=== PATIENT | male | born 1965 | race Caucasian/White ===

== ENCOUNTER 2021-12-29 09:01 | Emergency (ER) | payer OTHER, MEDICAID, SELFPAY ==
[2021-12-29 09:16] VITALS: BP 153/87; PULSE 100; RESP 14; TEMP 37.1; O2SAT 98; BMI 25.7
--- NOTE | 2021-12-29 09:28 | ED.GENADULT ---
HPI - General Adult General Chief complaint: Eye Problems Stated complaint: Eye swelling Time Seen by Provider: 12/29/21 09:24 Source: patient Mode of arrival: Ambulatory History of Present Illness HPI narrative: Patient is a 56-year-old male. He is here for swelling around his right eye. He states he has a boil in this area that he has had for many years. He states that it grows and then drains. He has had it lanced in the past. He also has a similar issue on his back. Over the past 24 hours he has noted swelling around his right eye with some redness. No drainage. No specific visual changes. No foreign body sensation. He attempted to drain the boil at home without any success. Does were glasses but no contact lenses. No prior eye surgeries. Related Data Previous Rx's Medication Instructions Recorded cephalexin 500 mg capsule 500 mg PO QID 5 Days #20 cap 12/29/21 Allergies Allergy/AdvReac Type Severity Reaction Status Date / Time No Known Drug Allergies Allergy Verified 12/29/21 09:16 Review of Systems Constitutional Constitutional: Reports as per HPI and Reports system reviewed and no additional complaints, except as documented Eyes Eyes: Reports as per HPI and Reports system reviewed and no additional complaints, except as documented ENT Ears, Nose, Mouth, and Throat: Reports system reviewed and no additional complaints, except as documented and Reports as per HPI Integumentary/Breasts Skin/Breast: Reports as per HPI Hematologic/Lymphatic On Anticoagulants: No Patient History Medical History Boil Social History Smoking Status: Current every day smoker Smoking Status: Current every day smoker alcohol intake frequency: 3 or more drinks per day Substance Use Type: does not use Exam Initial Vital Signs Initial Vital Signs: Vital Signs Temperature 98.7 F 12/29/21 09:16 Pulse Rate 100 H 12/29/21 09:16 Respiratory Rate 14 12/29/21 09:16 Blood Pressure 153/87 H 12/29/21 09:16 Pulse Oximetry 98 12/29/21 09:16 Const General: cooperative, comfortable and well developed [facility] Head: normal to inspection Nose: external nose normal Mouth: oral mucosae normal Eyes Other: Patient does have redness and swelling both superior and inferior around the right eye. On the lateral aspect of the right eye there is a swelling consistent with his stated history of a boil. There is minimal erythema in this area. His pupils are equal and reactive. Extraocular muscles intact. No foreign body noted. Sclera is unremarkable Resp Effort & Inspection: normal respiratory effort Cardio Rate: regular rate Skin Other: Patient does have a 2 cm round fullness on his right upper back where he states he has had a boil in the past. He has a similar appearing area just lateral to his right eye. Neuro General: patient alert, patient awake and moves all extremities Procedures Abscess I/D I&D #1: Site: back Side (if applicable): right Local Anesthetic: lidocaine 1% and with bicarb Amount of anesthesia used (mL): 2 Technique: incised with #11 blade Irrigation: No Packing used?: none I&D #2: Site: face Side (if applicable): right Local Anesthetic: lidocaine 1% and with bicarb Amount of anesthesia used (mL): 2 Technique: needle aspiration Irrigation: No Packing used?: none Course Orders Ordered: Discontinued Medications Lidocaine/Sodium Bicarbonate (Lido 1%/Sod Bicarb 8.4% (10ml) 10 Ml Syringe) 10 ml INJ NOW ONE Stop: 12/29/21 09:30 Vital Signs Vital signs: Vital Signs - 8 hr 12/29/21 09:16 Temperature 98.7 F Pulse Rate 100 H Respiratory Rate 14 Blood Pressure 153/87 H Pulse Oximetry 98 Medical Decision Making [facility] Narrative Medical decision making narrative: After incision and drainage of the 2 areas noted above it did appear that these were epidermal inclusion cyst not necessarily abscesses. He does have redness and swelling surrounding his right eye with no other eye complaints. I have low suspicion for orbital cellulitis. Given the fact that this is around his I will start him on antibiotics. He was informed that he needed to follow-up with general surgery to have the cyst removed. He was given care instructions and return precautions. He expressed understanding and agreement. Discharge Plan Departure Patient Disposition: Home Clinical Impression: Epidermal inclusion cyst, Periorbital cellulitis Instructions: DI for Epidermal Cyst Activity Restrictions/Additional Instructions: I do recommend that you contact the surgeon at the number provided below to have the cysts that were drained today removed. There most likely going to continue to reoccur until this happens. Take the antibiotics as directed. Return to the emergency department for any new or worsening symptoms. Prescriptions: New cephalexin 500 mg capsule 500 mg PO QID 5 Days Qty: 20 0RF Referrals: Bruce Starr MD [Physician] -
[2021-12-29] MEDS: LIDO 1%/SOD BICARB 8.4% (10ML) 10 ML SYRINGE INJ (10:02)
== END 2021-12-29 10:07 | disposition home or self-care (01) ==
PROVIDERS: Emergency Provider Emergency Medicine
DX: L72.0 Epidermal cyst (principal); L03.213 Periorbital cellulitis; F17.200 Nicotine dependence, unspecified, uncomplicated
CPT/HCPCS: 10061; 99281; 99283

== ENCOUNTER 2023-04-04 08:54 | Emergency (ER) | payer OTHER, MEDICAID, SELFPAY ==
[2023-04-04] VITALS (15 sets, daily range): BP systolic 135–179; BP diastolic 76–111; PULSE 70–114; RESP 12–30; TEMP 36.5; O2SAT 94–100; BMI 25.0
--- NOTE | 2023-04-04 09:00 | DI.RAD.S_ITS ---
PROCEDURE: XR CHEST 1V INDICATIONS: chest pain TECHNIQUE: One view of the chest was acquired. COMPARISON: None. FINDINGS: Surgical changes and devices: None. Lungs and pleura: Lungs are clear. No pleural effusions or pneumothorax. Mediastinum: Mediastinal contours appear normal. Heart size is normal. Bones and chest wall: No suspicious bony lesions. Overlying soft tissues appear unremarkable. IMPRESSION: No acute cardiopulmonary process. Dictated by: Patrick Bowman M.D. on 04/04/2023 at 9:28 Approved by: Patrick Bowman M.D. on 04/04/2023 at 9:28
[2023-04-04] MEDS: ASPIRIN 81 MG CHEW TAB 324 MG PO (09:06)
[2023-04-04 09:16] LABS: Add Manual Diff / Slide Review NO; Basophils Absolute Auto 100 /uL (0-100); Eosinophils Absolute Auto 200 /uL (0-450); Eosinophils Percent Auto 2.7 % (2-4); Hematocrit 51.3 % (41-53); Hemoglobin 17.5 g/dL (13.5-17.5); INR 0.9 (0.9-1.3); Lymphocytes Absolute Auto 1700 /uL (1100-4500); Mean Corpuscular HGB Conc 34.2 % (30-36); Mean Corpuscular Hemoglobin 28.9 PG (26-34); Mean Corpuscular Volume 84.6 fL (80-100); Monocytes Absolute Auto 600 /uL (0-900); Monocytes Percent Auto 8.3 % (3-14); Neutrophils Absolute Auto 4500 /uL (1500-7000); Platelet Count 278 X10^3/uL (150-400); Prothrombin Time 10.5 SECONDS (10.1-12.7); Red Blood Cell Count 6.07 X10^6/uL (4.5-5.9); Red Cell Distribution Width 19.7 % (11.6-14.8)
[2023-04-04 09:18] LABS: PTT Partial Thromboplastin Tim 33 SECONDS (26-36)
[2023-04-04 09:21] LABS: Alanine Aminotransferase 29 IU/L (<50); Albumin 4.6 g/dL (3.5-5.0); Albumin Globulin Ratio 1.1 (1.0-2.8); Alkaline Phosphatase 147 U/L (38-126); Aspartate Aminotransferase 30 IU/L (17-59); BUN Creatinine Ratio 13.4 (6-22); Blood Urea Nitrogen 11 mg/dL (9-20); Calcium 9.6 mg/dL (8.4-10.2); Carbon Dioxide 27 mmol/L (22-32); Chloride 99 mmol/L (98-107); Creatine Kinase 60 U/L (55-170); Estimated Glomerular Filt Rate > 60 mL/min (>60); Globulin 4.3 g/dL (1.7-4.1); Glucose 143 mg/dL (70-100); HEMOLYSIS < 15 (0-50); Lipase 140 U/L (23-300); Magnesium 1.9 mg/dL (1.6-2.3); Potassium 3.8 mmol/L (3.4-5.1); Sodium 138 mmol/L (137-145); Total Protein 8.9 g/dL (6.3-8.2)
--- NOTE | 2023-04-04 09:25 | ED_ITS ---
HPI - Chest Pain General Chief Complaint: Chest Pain Stated Complaint: chest pain Time Seen by Provider: 04/04/23 09:23 Source: patient Mode of arrival: Ambulatory Limitations: no limitations History of Present Illness HPI narrative: Patient is a 58-year-old male. Does have a smoking history. Also has a history of high blood pressure. Also has a history of coronary artery disease. He states he had a heart attack approximately 15 years ago. He states that 1 hour ago he was walking and started to get chest discomfort. He states there periods of time when in his worse than others but is not completely gone. It is somewhat worse with palpation. Not worse with movement. No shortness of breath. He states that it does feel similar to his prior heart attack. He has had symptoms like this off and on for the past here so. At 1 point he was hospitalized for this. Has not tried anything for the symptoms prior to arrival. Related Data Allergies Allergy/AdvReac Type Severity Reaction Status Date / Time No Known Drug Allergies Allergy Verified 12/29/21 09:16 Review of Systems Review of Systems ROS Unobtainable: All systems reviewed & are unremarkable except as noted in HPI and below Patient History Medical History Boil Social History Smoking Status: Current every day smoker Smoking Status: Current every day smoker alcohol intake frequency: 3 or more drinks per day Substance Use Type: does not use Exam Initial Vital Signs Initial Vital Signs: Vital Signs Temperature 97.7 F 04/04/23 09:01 Pulse Rate 114 H 04/04/23 09:01 Respiratory Rate 22 04/04/23 09:01 Blood Pressure 179/111 H 04/04/23 09:01 Pulse Oximetry 99 04/04/23 09:01 Oxygen Delivery Method Room Air 04/04/23 09:01 Const General: cooperative, comfortable and No ill appearing [facility] Head: normal to inspection and normocephalic Resp Effort & Inspection: normal respiratory effort Auscultation: clear to auscultation bilaterally Cardio Rate: regular rate Rhythm: regular rhythm GI Palpation: soft and No tender Skin General: no rashes or lesions noted Neuro General: patient alert, patient awake, patient oriented x3 and moves all extrem ities Extrem General: normal to inspection and No edema Psych Appearance: grossly normal Scores HEART Score Heart Score history: Moderately Suspicious Heart Score EKG: Normal Heart Score Age: 45-64 years old Heart Score risk factors: > 3 risk factors or hx of atherosclerotic disease Heart Score troponin: < or = to normal limit Heart Score Total: 4 Course Orders Ordered: ED Orders 04/04/23 09:00 XR chest 1V Stat Complete Blood Count AUTO DIFF Stat Comprehensive Metabolic Panel Stat Lipase Stat Magnesium Stat PTT Partial Thromboplastin [place] Stat Prothrombin Time INR Stat Troponin & CK Cardiac Panel Stat EKG-12 Lead Stat 04/04/23 12:00 Troponin & CK Cardiac Panel Stat Nitroglycerin (Nitroglycerin 0.4 Mg Sl Tab) 0.4 mg SL [id number] PRN PRN Reason: Chest Pain Last Admin: 04/04/23 10:24 Dose: 0.4 mg Documented By: Admin: 04/04/23 10:20 Dose: 0.4 mg Documented By: REMI Discontinued Medications Aspirin (Aspirin 81 Mg Chew Tab) 324 mg PO NOW ONE Stop: 04/04/23 09:01 Last Admin: 04/04/23 09:06 Dose: 324 mg Documented By: VALERIE Vital Signs Vital signs: Vital Signs - 8 hr 04/04/23 09:01 04/04/23 09:09 04/04/23 09:10 Temperature 97.7 F Pulse Rate 114 H 92 H 92 H Respiratory Rate 22 30 H 27 H Blood Pressure 179/111 H Pulse Oximetry 99 100 99 Oxygen Delivery Method Room Air 04/04/23 09:10 04/04/23 09:15 04/04/23 10:20 Temperature Pulse Rate 85 82 Respiratory Rate 20 Blood Pressure 164/99 H 150/92 H Pulse Oximetry 98 Oxygen Delivery Method 04/04/23 10:24 04/04/23 09:30 04/04/23 09:30 Temperature Pulse Rate 96 H 76 Respiratory Rate 28 H Blood Pressure 150/92 H 160/99 H Pulse Oximetry 95 Oxygen Delivery Method 04/04/23 09:45 04/04/23 10:00 04/04/23 10:00 Temperature Pulse Rate 76 70 Respiratory Rate 27 H 27 H Blood Pressure 165/95 H Pulse Oximetry 96 96 Oxygen Delivery Method 04/04/23 10:15 04/04/23 10:23 04/04/23 10:23 Temperature Pulse Rate 70 83 Respiratory Rate 25 H 28 H Blood Pressure 150/92 H Pulse Oximetry 96 95 Oxygen Delivery Method 04/04/23 10:30 04/04/23 10:30 04/04/23 10:45 Temperature Pulse Rate 99 H 80 Respiratory Rate 12 21 Blood Pressure 155/82 H Pulse Oximetry 94 96 Oxygen Delivery Method 04/04/23 11:00 04/04/23 11:00 04/04/23 11:10 Temperature Pulse Rate 74 79 Respiratory Rate 17 14 Blood Pressure 135/76 Pulse Oximetry 96 98 Oxygen Delivery Method 04/04/23 11:10 Temperature Pulse Rate Respiratory Rate Blood Pressure 137/84 Pulse Oximetry Oxygen Delivery Method MDM - Chest Pain Lab Data Attestation: I reviewed the patient's lab results. 04/04/23 09:00 04/04/23 09:00 Labs: Lab Results 04/04/23 04/04/23 04/04/23 Range/Units 09:00 09:00 09:00 WBC 7.0 (4.5-11.0) X10^3/uL RBC 6.07 H (4.5-5.9) X10^6/uL Hgb 17.5 (13.5-17.5) g/dL Hct 51.3 (41-53) % MCV 84.6 (80-100) fL MCH 28.9 (26-34) PG MCHC 34.2 (30-36) % RDW 19.7 H (11.6-14.8) % Plt Count 278 (150-400) X10^3/uL Neut % (Auto) 64.0 (50-75) % Lymph % (Auto) 24.0 L (25-40) % [place] % (Auto) 8.3 (3-14) % Eos % (Auto) 2.7 (2-4) % Baso % (Auto) 1.0 (0-2) % Neut # (Auto) 4500 (9968-3468) /uL Lymph # (Auto) 1700 (9205-4307) /uL [place] # (Auto) 600 (0-900) /uL Eos # (Auto) 200 (0-450) /uL Baso # (Auto) 100 (0-100) /uL PT 10.5 (10.1-12.7) SECONDS INR 0.9 (0.9-1.3) APTT 33 (26-36) SECONDS Sodium 138 (137-145) mmol/L Potassium 3.8 (3.4-5.1) mmol/L Chloride 99 (98-107) mmol/L Carbon Dioxide 27 (22-32) mmol/L BUN 11 (9-20) mg/dL Creatinine 0.82 (0.66-1.25) mg/dL Estimated GFR > 60 (>60) mL/min BUN/Creatinine Ratio 13.4 (6-22) Glucose 143 H (70-100) mg/dL Calcium 9.6 (8.4-10.2) mg/dL Magnesium 1.9 (1.6-2.3) mg/dL Total Bilirubin 1.0 (0.2-1.3) mg/dL AST 30 (17-59) IU/L ALT 29 (<50) IU/L Alkaline Phosphatase 147 H (38-126) U/L Total Creatine Kinase 60 (55-170) U/L Troponin I 0.020 (0.01-0.034) ng/mL Total Protein 8.9 H (6.3-8.2) g/dL Albumin 4.6 (3.5-5.0) g/dL Globulin 4.3 H (1.7-4.1) g/dL Albumin/Globulin Ratio 1.1 (1.0-2.8) Lipase 140 (23-300) U/L Imaging Data Chest x-ray: Radiologist's Impression: PROCEDURE:? XR CHEST 1V ? INDICATIONS:? chest pain ? TECHNIQUE:? One view of the chest was acquired.? ? COMPARISON:? None. ? FINDINGS:? ? Surgical changes and devices:? None.? ? Lungs and pleura:? Lungs are clear.? No pleural effusions or pneumothorax.? ? Mediastinum:? Mediastinal contours appear normal.? Heart size is normal.? ? Bones and chest wall:? No suspicious bony lesions.? Overlying soft tissues appear unremarkable.? ? IMPRESSION:? No acute cardiopulmonary process. ECG Data Attestation: I personally reviewed and interpreted this ECG as follows: Interpretation: Sinus rhythm Ventricular rate 92 Normal axis Normal QRS Normal QTC No ST T wave changes MDM Narrative Medical decision making narrative: Patient does have a history of coronary artery disease. He arrived today with chest pain that he states is very similar to his prior heart attack but it is reproducible with palpation. He does have a heart score of 4. His EKG shows no changes. His troponin is negative. His symptoms resolved after nitroglycerin. Had a discussion with him regarding the symptoms. We discussed my concern about ACS as the cause of his symptoms specifically given his history. He expressed understanding of this. We discussed staying in the emergency department for repeat troponin however the patient stated that he needed to leave because he needed to move his trailer from the camping spot. He is alert oriented x3. GCS of 15. Not clinically intoxicated. In my opinion has capacity to make decisions. The patient's was at bedside for these discussions. We discussed the risks and benefits of going home. He understands my concern. He understands the risk to his life for this. He does have a primary doctor. Patient did leave Against Medical Advice. He was advised that he can return to the emergency department at any point to continue his workup. He was given nitroglycerin with instructions on how to take this medicine. He expressed understanding and agreement this plan. Discharge Plan Departure Patient Disposition: Left Against Medical Advice Clinical Impression: Chest pain Activity Restrictions/Additional Instructions: Despite my recommendation that you stay for further workup you have opted to be discharged from the hospital. I do recommend that you continue to take all of your medications as directed. I also recommend that you contact your primary doctor for follow-up. You can return to the emergency department at any point to complete your workup and I highly encourage you to return to the emergency department if your to have chest pain once again. Stand Alone Forms: Against Medical Advice
[2023-04-04] MEDS: NITROGLYCERIN 0.4 MG SL TAB SL ×2 (10:20→10:24)
--- NOTE | 2023-04-04 11:22 | PC.NURSE ---
Pt decided to leave AMA. Pt states the need to move his trailer that is parked in an [place] park by noon. Reports that if he is feeling pain he will come back. ambulated out of ED with steady gait
== END 2023-04-04 11:21 | disposition left against medical advice (07) ==
PROVIDERS: Emergency Provider Emergency Medicine
DX: R07.9 Chest pain, unspecified (principal); I25.2 Old myocardial infarction
CPT/HCPCS: 36415; 71045; 80053; 82550; 83690; 83735; 84484; 85025; 85610; 85730; 93005; 99284

== ENCOUNTER 2023-04-04 19:19 | Emergency (ER) | payer OTHER, MEDICAID, SELFPAY ==
[2023-04-04] VITALS (48 sets, daily range): BP systolic 122–159; BP diastolic 71–95; PULSE 69–98; RESP 10–31; TEMP 36.3; O2SAT 95–99
--- NOTE | 2023-04-04 19:27 | DI.RAD.S_ITS ---
PROCEDURE: XR CHEST 1V INDICATIONS: chest pain TECHNIQUE: One view of the chest was acquired. COMPARISON: [facility], CR, XR CHEST 1V, 04/04/2023, 9:03. FINDINGS: Surgical changes and devices: None. Lungs and pleura: Lungs are clear. No pleural effusions or pneumothorax. Mediastinum: Mediastinal contours appear normal. Heart size is normal. Bones and chest wall: No suspicious bony lesions. Overlying soft tissues appear unremarkable. IMPRESSION: 1. No acute cardiopulmonary disease. Dictated by: Reid Beasley M.D. on 04/04/2023 at 21:01 Approved by: Reid Beasley M.D. on 04/04/2023 at 21:02
[2023-04-04] MEDS: NITROGLYCERIN 0.4 MG SL TAB SL ×3 (19:35→19:47)
[2023-04-04] MEDS: KETOROLAC 30 MG/ML VIAL 15 MG IV (19:48)
[2023-04-04 19:50] LABS: Alanine Aminotransferase 25 IU/L (<50); Albumin 4.3 g/dL (3.5-5.0); Albumin Globulin Ratio 1.1 (1.0-2.8); Alkaline Phosphatase 130 U/L (38-126); Aspartate Aminotransferase 28 IU/L (17-59); BUN Creatinine Ratio 15.5 (6-22); Bilirubin Total 0.9 mg/dL (0.2-1.3); Blood Urea Nitrogen 13 mg/dL (9-20); Calcium 9.5 mg/dL (8.4-10.2); Carbon Dioxide 25 mmol/L (22-32); Chloride 103 mmol/L (98-107); Creatine Kinase 71 U/L (55-170); Estimated Glomerular Filt Rate > 60 mL/min (>60); Glucose 112 mg/dL (70-100); HEMOLYSIS < 15 (0-50); Lipase 93 U/L (23-300); Magnesium 1.7 mg/dL (1.6-2.3); Potassium 3.3 mmol/L (3.4-5.1); Sodium 137 mmol/L (137-145); Total Protein 8.3 g/dL (6.3-8.2)
[2023-04-04 19:55] LABS: Add Manual Diff / Slide Review NO; Basophils Absolute Auto 100 /uL (0-100); Basophils Percent Auto 1.5 % (0-2); Eosinophils Absolute Auto 200 /uL (0-450); Eosinophils Percent Auto 2.5 % (2-4); Hematocrit 48.6 % (41-53); Hemoglobin 16.6 g/dL (13.5-17.5); Lymphocytes Absolute Auto 1700 /uL (1100-4500); Lymphocytes Percent Auto 19.8 % (25-40); Mean Corpuscular HGB Conc 34.2 % (30-36); Mean Corpuscular Hemoglobin 28.5 PG (26-34); Mean Corpuscular Volume 83.4 fL (80-100); Monocytes Absolute Auto 700 /uL (0-900); Monocytes Percent Auto 8.3 % (3-14); Neutrophils Absolute Auto 5900 /uL (1500-7000); Neutrophils Percent Auto 67.9 % (50-75); Platelet Count 264 X10^3/uL (150-400); Red Blood Cell Count 5.82 X10^6/uL (4.5-5.9); Red Cell Distribution Width 19.7 % (11.6-14.8); White Blood Cell Count 8.7 X10^3/uL (4.5-11.0)
[2023-04-04 20:05] LABS: Troponin I 0.511 ng/mL (0.01-0.034)
--- NOTE | 2023-04-04 20:14 | ED_ITS ---
HPI - Chest Pain General Chief Complaint: Chest Pain Stated Complaint: chest pain/down left arm/back Time Seen by Provider: 04/04/23 20:04 Source: patient Mode of arrival: Ambulatory Limitations: no limitations History of Present Illness HPI narrative: Patient is a 58-year-old male history of coronary artery disease hypertension and smoking presenting for the 2nd time today. He is actually seen evaluated here for chest discomfort it was recommended that he have a repeat troponin however he needed to leave. He was given nitroglycerin he went home he was on the couch and he had pressure radiated down both arms and he took a nitroglycerin it did not seem to help much. He is now here presenting with same heaviness pressure radiation. No real shortness of breath but does not feel quite right. No nausea or vomiting Related Data Home Medications Medication Instructions Recorded Confirmed albuterol sulfate 90 mcg/actuation 2 inh inhalation Q4HR PRN Wheezing 04/04/23 04/04/23 aerosol inhaler amlodipine 5 mg tablet 5 mg PO DAILY 04/04/23 04/04/23 gabapentin 300 mg capsule 600 mg PO TID 04/04/23 04/04/23 hydrochlorothiazide 25 mg tablet 25 mg PO DAILY 04/04/23 04/04/23 ropinirole 0.5 mg tablet 0.5 mg PO TID 04/04/23 04/04/23 Allergies Allergy/AdvReac Type Severity Reaction Status Date / Time No Known Drug Allergies Allergy Verified 04/04/23 20:31 Review of Systems Review of Systems ROS Unobtainable: All systems reviewed & are unremarkable except as noted in HPI and below Patient History Medical History Alcohol dependence Boil Chronic back pain Hypertension Smoker Social History Smoking Status: Current every day smoker Smoking Status: Current every day smoker alcohol intake frequency: 3 or more drinks per day Substance Use Type: does not use Exam Initial Vital Signs Initial Vital Signs: Vital Signs Pulse Rate 95 H 04/04/23 19:25 Respiratory Rate 18 04/04/23 19:25 Blood Pressure 159/90 H 04/04/23 19:25 Pulse Oximetry 99 04/04/23 19:25 Oxygen Delivery Method Room Air 04/04/23 19:25 GENERAL: Alert 58-year-old male in mild discomfort HEENT: Head atraumatic,EOMI, pupils reactive, face symmetric, moist mucous membranes] CARDIOVASCULAR: Regular rate and rhythm without murmurs, rubs or gallops. RESPIRATORY: Breath sounds equal bilaterally, no wheezes rales or rhonchi. ABDOMEN: Soft, nontender. Normoactive bowel sounds all 4 quadrants. No guarding or rebound. : No CVA tenderness EXTREMITIES: Normal range of motion, no clubbing or edema. Neurovascularly intact NEUROLOGICAL: Alert and oriented x4. SKIN: Warm, dry, no laceration, no petechiae, no rashes or lesions. Course Orders Ordered: Discontinued Medications Heparin Sodium (Porcine) (Heparin 5,000 Unit/Ml Vial) 5,000 unit IV NOW ONE Stop: 04/04/23 20:20 Last Admin: 04/04/23 20:32 Dose: 5,000 unit Documented By: LAILA Heparin Sodium/Dextrose (Heparin Drip) 25,000 unit in 500 mls @ 19.715 mls/hr IV CONT SHELDON; Protocol Last Admin: 04/04/23 20:33 Dose: 12 units/kg/hr, 19.715 mls/hr Documented By: LAILA Co-signed By: RASHEED Nitroglycerin (Nitroglycerin) 50 mg in 250 mls @ 1.5 mls/hr IV TITRATE SHELDON; Protocol Last Admin: 04/04/23 20:31 Dose: 5 mcg/min, 1.5 mls/hr Documented By: LAILA Magnesium Sulfate (Magnesium Sulfate) 2 gm in 50 mls @ 150 mls/hr IV NOW ONE Stop: 04/05/23 01:08 Last Infusion: 04/05/23 02:29 Dose: 0 mls/hr Documented By: OMAYRA Co-signed By: DOUGLAS Admin: 04/05/23 01:41 Dose: 150 mls/hr Documented By: DOUGLAS Co-signed By: OMAYRA POTASSIUM CHLORIDE IN WATER (Potassium Cl 10 Meq/100 Ml Zoila) 10 meq in 100 mls @ 100 mls/hr IV Q1H SHELDON Stop: 04/05/23 02:59 Last Infusion: 04/05/23 05:37 Dose: 0 mls/hr Documented By: Admin: 04/05/23 03:27 Dose: 100 mls/hr Documented By: Infusion: 04/05/23 03:20 Dose: 100 mls/hr Documented By: Admin: 04/05/23 02:20 Dose: 100 mls/hr Documented By: DOUGLAS Ketorolac Tromethamine (Ketorolac 30 Mg/Ml Vial) 15 mg IV NOW ONE Stop: 04/04/23 19:45 Last Admin: 04/04/23 19:48 Dose: 15 mg Documented By: ZAK Nitroglycerin (Nitroglycerin 0.4 Mg Sl Tab) 0.4 mg SL [id number] PRN PRN Reason: Chest Pain Last Admin: 04/04/23 19:47 Dose: 0.4 mg Documented By: Admin: 04/04/23 19:41 Dose: 0.4 mg Documented By: Admin: 04/04/23 19:35 Dose: 0.4 mg Documented By: ZAK Vital Signs Vital signs: Vital Signs - 8 hr 04/04/23 19:27 04/04/23 19:35 04/04/23 19:41 Temperature 97.4 F L Pulse Rate 90 91 H 98 H Respiratory Rate 18 Blood Pressure 159/90 H 156/89 H 126/73 Pulse Oximetry 99 Oxygen Delivery Method Room Air 04/04/23 19:47 04/04/23 19:50 04/04/23 19:25 Temperature Pulse Rate 89 86 95 H Respiratory Rate 17 18 Blood Pressure 124/76 128/79 159/90 H Pulse Oximetry 97 99 Oxygen Delivery Method Room Air Room Air 04/04/23 20:31 04/04/23 20:17 04/04/23 20:20 Temperature Pulse Rate 74 80 78 Respiratory Rate Blood Pressure 141/87 H Pulse Oximetry 98 99 Oxygen Delivery Method 04/04/23 20:21 04/04/23 20:21 04/04/23 20:25 Temperature Pulse Rate 76 76 Respiratory Rate 10 L 13 Blood Pressure 145/89 H Pulse Oximetry 97 99 Oxygen Delivery Method 04/04/23 20:30 04/04/23 20:30 04/04/23 20:35 Temperature Pulse Rate 69 75 Respiratory Rate 20 21 Blood Pressure 141/87 H Pulse Oximetry 97 97 Oxygen Delivery Method Room Air 04/04/23 20:40 04/04/23 20:45 04/04/23 20:45 Temperature Pulse Rate 79 77 Respiratory Rate 25 H 17 Blood Pressure 140/90 Pulse Oximetry 98 96 Oxygen Delivery Method 04/04/23 20:50 04/04/23 20:54 04/04/23 20:54 Temperature Pulse Rate 82 83 Respiratory Rate 22 Blood Pressure 136/86 Pulse Oximetry 98 97 Oxygen Delivery Method 04/04/23 20:55 04/04/23 21:40 04/04/23 21:40 Temperature Pulse Rate 84 78 Respiratory Rate 26 H 21 Blood Pressure 133/82 Pulse Oximetry 96 96 Oxygen Delivery Method 04/04/23 21:45 04/04/23 21:45 04/04/23 21:50 Temperature Pulse Rate 78 Respiratory Rate 19 Blood Pressure 137/83 132/84 Pulse Oximetry 95 Oxygen Delivery Method 04/04/23 21:50 04/04/23 21:55 04/04/23 21:55 Temperature Pulse Rate 81 73 Respiratory Rate 31 H Blood Pressure 130/79 Pulse Oximetry 95 96 Oxygen Delivery Method 04/04/23 22:00 04/04/23 22:00 04/04/23 22:05 Temperature Pulse Rate 74 Respiratory Rate Blood Pressure 122/75 123/74 Pulse Oximetry 96 Oxygen Delivery Method 04/04/23 22:05 04/04/23 22:10 04/04/23 22:11 Temperature Pulse Rate 77 84 85 Respiratory Rate Blood Pressure Pulse Oximetry 95 96 97 Oxygen Delivery Method 04/04/23 22:11 04/04/23 22:15 04/04/23 22:15 Temperature Pulse Rate 82 Respiratory Rate Blood Pressure 139/82 143/90 H Pulse Oximetry 96 Oxygen Delivery Method 04/04/23 22:20 04/04/23 22:20 04/04/23 22:25 Temperature Pulse Rate 88 Respiratory Rate Blood Pressure 147/86 H 148/89 H Pulse Oximetry 96 Oxygen Delivery Method 04/04/23 22:25 04/04/23 22:30 04/04/23 22:30 Temperature Pulse Rate 84 82 Respiratory Rate Blood Pressure 134/84 Pulse Oximetry 96 96 Oxygen Delivery Method 04/04/23 22:35 04/04/23 22:35 04/04/23 22:40 Temperature Pulse Rate 80 Respiratory Rate Blood Pressure 133/84 136/88 Pulse Oximetry 96 Oxygen Delivery Method 04/04/23 22:40 04/04/23 22:45 04/04/23 22:45 Temperature Pulse Rate 81 81 Respiratory Rate Blood Pressure 128/86 Pulse Oximetry 96 96 Oxygen Delivery Method 04/04/23 22:50 04/04/23 22:50 04/04/23 22:55 Temperature Pulse Rate 81 Respiratory Rate Blood Pressure 139/86 134/83 Pulse Oximetry 95 Oxygen Delivery Method 04/04/23 22:55 04/04/23 23:00 04/04/23 23:00 Temperature Pulse Rate 85 81 Respiratory Rate Blood Pressure 132/80 Pulse Oximetry 96 96 Oxygen Delivery Method 04/04/23 23:05 04/04/23 23:06 04/04/23 23:06 Temperature Pulse Rate 87 98 H Respiratory Rate Blood Pressure 143/89 H Pulse Oximetry 96 96 Oxygen Delivery Method 04/04/23 23:10 04/04/23 23:10 04/04/23 23:15 Temperature Pulse Rate 92 H Respiratory Rate 14 Blood Pressure 147/95 H 136/76 Pulse Oximetry 97 Oxygen Delivery Method 04/04/23 23:15 04/04/23 23:20 04/04/23 23:20 Temperature Pulse Rate 79 77 Respiratory Rate 17 21 Blood Pressure 131/75 Pulse Oximetry 96 97 Oxygen Delivery Method 04/04/23 23:25 04/04/23 23:25 04/04/23 23:30 Temperature Pulse Rate 73 Respiratory Rate 19 Blood Pressure 127/77 127/75 Pulse Oximetry 97 Oxygen Delivery Method 04/04/23 23:30 04/04/23 23:35 04/04/23 23:35 Temperature Pulse Rate 75 72 Respiratory Rate 24 18 Blood Pressure 128/78 Pulse Oximetry 98 96 Oxygen Delivery Method MDM - Chest Pain Lab Data 04/05/23 01:12 04/04/23 19:30 Labs: Lab Results 04/04/23 04/04/23 04/04/23 Range/Units 19:30 19:30 19:30 WBC 8.7 (4.5-11.0) X10^3/uL RBC 5.82 (4.5-5.9) X10^6/uL Hgb 16.6 (13.5-17.5) g/dL Hct 48.6 (41-53) % MCV 83.4 (80-100) fL MCH 28.5 (26-34) PG MCHC 34.2 (30-36) % RDW 19.7 H (11.6-14.8) % Plt Count 264 (150-400) X10^3/uL Neut % (Auto) 67.9 (50-75) % Lymph % (Auto) 19.8 L (25-40) % [place] % (Auto) 8.3 (3-14) % Eos % (Auto) 2.5 (2-4) % Baso % (Auto) 1.5 (0-2) % Neut # (Auto) 5900 (0514-1364) /uL Lymph # (Auto) 1700 (5896-6728) /uL [place] # (Auto) 700 (0-900) /uL Eos # (Auto) 200 (0-450) /uL Baso # (Auto) 100 (0-100) /uL PT 10.9 (10.1-12.7) SECONDS INR 1.0 (0.9-1.3) APTT 31 (26-36) SECONDS Sodium 137 (137-145) mmol/L Potassium 3.3 L (3.4-5.1) mmol/L Chloride 103 (98-107) mmol/L Carbon Dioxide 25 (22-32) mmol/L BUN 13 (9-20) mg/dL Creatinine 0.84 (0.66-1.25) mg/dL Estimated GFR > 60 (>60) mL/min BUN/Creatinine Ratio 15.5 (6-22) Glucose 112 H (70-100) mg/dL Calcium 9.5 (8.4-10.2) mg/dL Magnesium 1.7 (1.6-2.3) mg/dL Total Bilirubin 0.9 (0.2-1.3) mg/dL AST 28 (17-59) IU/L ALT 25 (<50) IU/L Alkaline Phosphatase 130 H (38-126) U/L Total Creatine Kinase 71 (55-170) U/L Troponin I 0.511 H* (0.01-0.034) ng/mL NT-Pro-B Natriuret Pep (<125) pg/mL Total Protein 8.3 H (6.3-8.2) g/dL Albumin 4.3 (3.5-5.0) g/dL Globulin 4.0 (1.7-4.1) g/dL Albumin/Globulin Ratio 1.1 (1.0-2.8) Lipase 93 (23-300) U/L 04/04/23 04/05/23 04/05/23 Range/Units 19:30 01:12 01:12 WBC (4.5-11.0) X10^3/uL RBC (4.5-5.9) X10^6/uL Hgb (13.5-17.5) g/dL Hct (41-53) % MCV (80-100) fL MCH (26-34) PG MCHC (30-36) % RDW (11.6-14.8) % Plt Count (150-400) X10^3/uL Neut % (Auto) (50-75) % Lymph % (Auto) (25-40) % [place] % (Auto) (3-14) % Eos % (Auto) (2-4) % Baso % (Auto) (0-2) % Neut # (Auto) (5907-8107) /uL Lymph # (Auto) (2091-9721) /uL [place] # (Auto) (0-900) /uL Eos # (Auto) (0-450) /uL Baso # (Auto) (0-100) /uL PT (10.1-12.7) SECONDS INR (0.9-1.3) APTT 51 H D (26-36) SECONDS Sodium (137-145) mmol/L Potassium (3.4-5.1) mmol/L Chloride (98-107) mmol/L Carbon Dioxide (22-32) mmol/L BUN (9-20) mg/dL Creatinine (0.66-1.25) mg/dL Estimated GFR (>60) mL/min BUN/Creatinine Ratio (6-22) Glucose (70-100) mg/dL Calcium (8.4-10.2) mg/dL Magnesium (1.6-2.3) mg/dL Total Bilirubin (0.2-1.3) mg/dL AST (17-59) IU/L ALT (<50) IU/L Alkaline Phosphatase (38-126) U/L Total Creatine Kinase 344 H D (55-170) U/L Troponin I 6.430 H* (0.01-0.034) ng/mL NT-Pro-B Natriuret Pep 161 H (<125) pg/mL Total Protein (6.3-8.2) g/dL Albumin (3.5-5.0) g/dL Globulin (1.7-4.1) g/dL Albumin/Globulin Ratio (1.0-2.8) Lipase (23-300) U/L 04/05/23 04/05/23 Range/Units 01:12 06:05 WBC (4.5-11.0) X10^3/uL RBC (4.5-5.9) X10^6/uL Hgb 14.6 (13.5-17.5) g/dL Hct 43.8 (41-53) % MCV (80-100) fL MCH (26-34) PG MCHC (30-36) % RDW (11.6-14.8) % Plt Count 225 (150-400) X10^3/uL Neut % (Auto) (50-75) % Lymph % (Auto) (25-40) % [place] % (Auto) (3-14) % Eos % (Auto) (2-4) % Baso % (Auto) (0-2) % Neut # (Auto) (1438-9988) /uL Lymph # (Auto) (5401-2622) /uL [place] # (Auto) (0-900) /uL Eos # (Auto) (0-450) /uL Baso # (Auto) (0-100) /uL PT (10.1-12.7) SECONDS INR (0.9-1.3) APTT (26-36) SECONDS Sodium (137-145) mmol/L Potassium (3.4-5.1) mmol/L Chloride (98-107) mmol/L Carbon Dioxide (22-32) mmol/L BUN (9-20) mg/dL Creatinine (0.66-1.25) mg/dL Estimated GFR (>60) mL/min BUN/Creatinine Ratio (6-22) Glucose (70-100) mg/dL Calcium (8.4-10.2) mg/dL Magnesium (1.6-2.3) mg/dL Total Bilirubin (0.2-1.3) mg/dL AST (17-59) IU/L ALT (<50) IU/L Alkaline Phosphatase (38-126) U/L Total Creatine Kinase (55-170) U/L Troponin I 10.600 H* (0.01-0.034) ng/mL NT-Pro-B Natriuret Pep (<125) pg/mL Total Protein (6.3-8.2) g/dL Albumin (3.5-5.0) g/dL Globulin (1.7-4.1) g/dL Albumin/Globulin Ratio (1.0-2.8) Lipase (23-300) U/L ECG Data Interpretation: 1. (9am prior visit this morning) sinus rhythm 82 TN interval 130 QRS [address] changes no T-wave inversions no priors to compare 2. Sinus rhythm rate 84 TN interval 130 QRS 80 T-waves noted in V4 V5 and V6 which are new from previous EKG no obvious ST elevations or depressions 3. Sinus rhythm questionable ST elevation lead [address] depression in reciprocal leads 4. Sinus rhythm rate 73 T-wave inversions 1 aVL V4 V5 and V6 with possible Wellens in V3 still questionable elevation 3 and AVF. MDM Narrative Medical decision making narrative: Patient 58-year-old male history of smoking hypertension hyperlipidemia presenting today with chest heaviness and pressure. Encouraged to stay earlier today for repeat troponin but has 1st 1 was negative at 0.02 without any EKG changes. He left against medical advice and returned this evening with pressure heaviness radiating down both arms. Symptoms are certainly concerning for acute coronary syndrome. Troponin is positive at 0.5. He was immediately given nitroglycerin to help with his chest discomfort which did relieve his pain he was started on nitro drip. When troponin returned back positive he was started on heparin. He was given aspirin earlier in the day no need to repeat. Blood work electrolyte abnormalities show magnesium of 1.7 and a potassium of 3.3 otherwise no other clinical significant abnormalities. Chest x-ray is negative. Patient remains on heparin drip and nitro drip in his chest pain-free Dr. Tafoya on-call cardiology updated patient's symptoms test results agrees that patient needs a cardiac catheterization and needs to be transferred. Unfortunately [facility] is full. Critical bed shortage patient on multiple list. [facility] has been updated Krissy Fam hospitalist updated on patient's symptoms test results kindly accept patient. They have a bed available this evening. Patient had a 12 beat run of V-tach was sleeping while happened completely asymptomatic Dr. Castro notified of run recommended replacing Mag and potassium. No need for antiarrhythmic at this time Repeat troponin returns very elevated 6.4 repeat EKG shows significant T-wave inversions in 1 aVL and precordial leads. Questionable ST elevation in 3 and AVF does not quite meet STEMI criteria Dr. Tafoya on-call cardiology reports no STEMI can stay coarse for transfer to the [facility]. Probable LAD lesion. Patient overall remains completely asymptomatic. Critical Care Time Critical Care Time Critical Care Time: Yes Total Critical Care Time: 60 Attestation: The high probability of a clinically significant, sudden or life threatening deterioration of the [cardiovascular] system(s) required my full and direct attention, intervention and personal management. The aggregate critical care time was 60 minutes. This time is in addition to time spent performing reported procedures but includes the following: [x] Data Review and interpretation [x] Patient assessment and monitoring of vital signs [x] Documentation [x] Medication orders and management Discharge Plan Departure Patient Disposition: [facility] Clinical Impression: Acute non-ST elevation myocardial infarction (NSTEMI) Prescriptions: No Action amlodipine 5 mg tablet 5 mg PO DAILY Patient Comments: take 1 tablet by mouth once daily ropinirole 0.5 mg tablet 0.5 mg PO TID Patient Comments: take 1 tablet by mouth three times a day gabapentin 300 mg capsule 600 mg PO TID Patient Comments: take 2 capsules by mouth three times a day hydrochlorothiazide 25 mg tablet 25 mg PO DAILY Patient Comments: take 1 tablet by mouth once daily albuterol sulfate 90 mcg/actuation HFA aerosol inhaler 2 inh INHALATION Q4HR PRN (Reason: Wheezing) Patient Comments: inhale 2 puffs by mouth and INTO THE LUNGS every 4 hours if neede... (REFER TO PRESCRIPTION NOTES). Referrals: Miscellaneous,Doctor, [Primary Care Provider] -
[2023-04-04] MEDS: NITROGLYCERIN 50 MG/250 ML INFUS..BTL IV (20:31)
[2023-04-04] MEDS: HEPARIN 5,000 UNIT/ML VIAL 5000 UNIT IV (20:32)
[2023-04-04] MEDS: HEPARIN DRIP 25,000 UNIT/500 ML IV.SOLN 19.715 UNIT IV (20:33)
[2023-04-04 20:38] LABS: NT-proBNP (BNP-Adult 18+) 161 pg/mL (<125)
[2023-04-04 20:53] LABS: Prothrombin Time 10.9 SECONDS (10.1-12.7)
[2023-04-04 20:55] LABS: PTT Partial Thromboplastin Tim 31 SECONDS (26-36)
[2023-04-05] VITALS (36 sets, daily range): BP systolic 119–134; BP diastolic 71–74; PULSE 67–79; RESP 14–25; O2SAT 93–97
[2023-04-05 01:26] LABS: Hematocrit 43.8 % (41-53); Hemoglobin 14.6 g/dL (13.5-17.5); Platelet Count 225 X10^3/uL (150-400)
[2023-04-05 01:31] LABS: PTT Partial Thromboplastin Tim 51 SECONDS (26-36)
[2023-04-05 01:33] LABS: Creatine Kinase 344 U/L (55-170)
[2023-04-05] MEDS: MAGNESIUM SULFATE 2 GM/50 ML PIGGYBACK IV (01:41)
[2023-04-05] MEDS: POTASSIUM CHLORIDE IN WATER 10 MEQ/100 ML PIGGYBACK 100 MEQ IV ×2 (02:20→03:27)
--- NOTE | 2023-04-11 11:50 | PC.NURSE ---
late entry- patient was transported to another facility with IV heparin and nitro infusing per RN's.
== END 2023-04-05 08:53 | disposition short-term general hospital (02) ==
PROVIDERS: Emergency Provider Emergency Medicine
DX: I21.4 Non-ST elevation (NSTEMI) myocardial infarction (principal); R79.89 Other specified abnormal findings of blood chemistry; R07.9 Chest pain, unspecified; I25.2 Old myocardial infarction
CPT/HCPCS: 36415; 71045; 80053; 82550; 83690; 83735; 83880; 84484; 85014; 85018; 85025; 85049; 85610; 85730; 93005; 93010; 96365; 96366; 96368; 96375; 99284; 99291; J1644; J1885; J3475

== ENCOUNTER 2025-06-15 17:14 | Emergency (ER) | payer OTHER, MEDICAID, SELFPAY ==
[2025-06-15] VITALS (16 sets, daily range): BP systolic 123–180; BP diastolic 64–88; PULSE 73–111; RESP 14–23; TEMP 37; O2SAT 95–97; BMI 22.9
--- NOTE | 2025-06-15 17:20 | DI.RAD.S_ITS ---
PROCEDURE: XR CHEST 1V INDICATIONS: Chest Pain TECHNIQUE: One view of the chest was acquired. COMPARISON: , CR, XR CHEST 1V, 04/04/2023, 19:50. , CR, XR CHEST 1V, 04/04/2023, 9:03. FINDINGS: Surgical changes and devices: None. Lungs and pleura: Lungs are clear. No pleural effusions or pneumothorax. Mediastinum: Mediastinal contours appear normal. Heart size is normal. Bones and chest wall: No suspicious bony lesions. Overlying soft tissues appear unremarkable. IMPRESSION: No acute cardiopulmonary abnormality is seen. Dictated by: Heather Mena M.D. on 06/15/2025 at 17:08 Approved by: Heather Mena M.D. on 06/15/2025 at 17:10
--- NOTE | 2025-06-15 17:20 | EKG_ITS ---
[address] [address] Test Date: 2025-06-15 Pat Name: Igor Ernst Department: [facility] Room: Gender: Male [employer] Mechanic: JOSE C : [id number] Requested By: Order Number: [id number] Reading MD: Alonso Spencer MD Measurements Intervals [place] Rate: 105 P: 78 MI: 128 QRS: 37 QRSD: 90 T: 59 QT: 340 QTc: 449 Interpretive Statements Sinus tachycardia Electronically Signed On 06-17-2025 7:46:40 PDT by Alonso Spencer MD
[2025-06-15 17:27] LABS: Add Manual Diff / Slide Review NO; Hematocrit 51.8 % (41-53); Hemoglobin 17.9 g/dL (13.5-17.5); Lymphocytes Absolute Auto 1800 /uL (1100-4500); Mean Corpuscular HGB Conc 34.6 % (30-36); Mean Corpuscular Hemoglobin 33.4 PG (26-34); Mean Corpuscular Volume 96.7 fL (80-100); Platelet Count 248 X10^3/uL (150-400)
[2025-06-15] MEDS: ASPIRIN 81 MG CHEW TAB 243 MG PO (17:31)
[2025-06-15 17:38] LABS: INR 1.0 (0.9-1.3); Prothrombin Time 11.1 SECONDS (9.4-12.5)
[2025-06-15 17:40] LABS: PTT Partial Thromboplastin Tim 32 SECONDS (25.1-36.5)
[2025-06-15 17:42] LABS: Alanine Aminotransferase 14 IU/L (<50); Albumin 4.2 g/dL (3.5-5.0); Albumin Globulin Ratio 1.0 (1.0-2.8); Alkaline Phosphatase 143 U/L (38-126); Blood Urea Nitrogen 12 mg/dL (9-20); Calcium 9.9 mg/dL (8.4-10.2); Carbon Dioxide 24 mmol/L (22-32); Chloride 107 mmol/L (98-107); Creatine Kinase 70 U/L (55-170); Estimated Glomerular Filt Rate > 60 mL/min (>60); Globulin 4.2 g/dL (1.7-4.1); Glucose 122 mg/dL (70-99); HEMOLYSIS 19 (0-50); Lipase 69 U/L (23-300); Magnesium 1.6 mg/dL (1.6-2.3); Potassium 3.7 mmol/L (3.4-5.1); Sodium 139 mmol/L (137-145); Total Protein 8.4 g/dL (6.3-8.2)
[2025-06-15 17:54] LABS: NT-proBNP (BNP-Adult 18+) 114 pg/mL (<125); Troponin I < 0.012 ng/mL (0.01-0.034)
--- NOTE | 2025-06-15 18:04 | ED_ITS ---
HPI - Chest Pain General Chief Complaint: Chest Pain Stated Complaint: Fit for Senior Living Time Seen by Provider: 06/15/25 17:16 Source: patient Mode of arrival: Ambulatory History of Present Illness HPI narrative: 60-year-old male with history of CAD, status post single coronary stent placed April 2023 when he had myocardial infarction, ongoing smoking, has outstanding DUI arrest warrant, was apparently on stress passed property today when police was called, brought in for fit for residential evaluation, admitted to having intermittent chest pain since this morning. Denies recent fevers, cough, chills. Denies pain or swelling to legs. No history of blood clots to legs or lungs. Related Data Home Medications ?Medication ?Instructions ?Recorded ?Confirmed albuterol sulfate 90 mcg/actuation 2 inh inhalation Q4 HR PRN Wheezing 04/04/23 04/04/23 aerosol inhaler amlodipine 5 mg tablet 5 mg PO DAILY 04/04/2304/04 gabapentin 300 mg capsule 600 mg PO TID 04/04/2304/04 hydrochlorothiazide 25 mg tablet 25 mg PO DAILY 04/04/23 ropinirole 0.5 mg tablet 0.5 mg PO TID 04/04/2304/04 Previous Rx's ?Medication ?Instructions ?Recorded omeprazole 20 mg capsule,delayed 20 mg PO DAILY upper abdominal 06/15/25 release pain 30 days #30 caps Allergies Allergy/AdvReac Type Severity Reaction Status Date / Time No Known Drug Allergies Allergy Verified 06/15/25 17:36 Patient History Medical History (Updated 06/15/25 @ 20:52 by Martin Hough MD) Alcohol dependence Chronic back pain Smoker Hypertension Boil Social History Smoking Status: Unknown if ever smoked Smoking Status: Unknown if ever smoked alcohol intake frequency: 3 or more drinks per day Exam Narrative Exam Narrative: GENERAL: Well-developed patient, in mild distress. HEAD: Atraumatic. Normocephalic. EYES: Pupils equal round and reactive. Extraocular motions intact. No scleral icterus. No injection or drainage. ENT: Nose without bleeding, purulent drainage. Throat without erythema, tonsillar hypertrophy or exudate. Airway patent. NECK: Trachea midline. Non tender CARDIOVASCULAR: Regular rate and rhythm without murmurs, gallops, or rubs. RESPIRATORY: Clear to auscultation. Breath sounds equal bilaterally. No wheezes, rales, or rhonchi. GASTROINTESTINAL: Abdomen soft, non-tender, nondistended. EXTREMITIES: No edema or joint tenderness. BACK: Nontender without deformity or crepitance. No flank tenderness. NEURO: AOx3. Motor functions grossly nonfocal. SKIN: No rash or erythema of visible areas Initial Vital Signs Initial Vital Signs: Vital Signs Temperature 98.6 F 06/15/25 17:16 Pulse Rate 104 H 06/15/25 17:16 Respiratory Rate 14 06/15/25 17:16 Blood Pressure 127/88 06/15/25 17:16 Pulse Oximetry 96 06/15/25 17:16 Oxygen Delivery Method Room Air 06/15/25 17:16 Course Orders Ordered: Discontinued Medications Aspirin (Aspirin 81 Mg Chew Tab) 282 mg PO NOW ONE Stop: 06/15/25 17:21 Last Admin: 06/15/25 17:31 Dose: Not Given Documented By: Aspirin (Aspirin 81 Mg Chew Tab) 243 mg PO NOW ONE Stop: 06/15/25 17:30 Last Admin: 06/15/25 17:31 Dose: 243 mg Documented By: Famotidine (Famotidine 20 Mg/2 Ml Vial) 20 mg IV NOW SHELDON Last Admin: 06/15/25 18:26 Dose: 20 mg Documented By: Sodium Chloride (Normal Saline 0.9%) 1,000 mls @ 1,000 mls/hr IV BOLUS ONE Stop: 06/15/25 20:25 Last Infusion: 06/15/25 21:10 Dose: Infused Documented By: Admin: 06/15/25 19:47 Dose: 1,000 mls/hr Documented By: LIZZY Morphine Sulfate (Morphine 4 Mg/Ml Inj) 4 mg IV NOW ONE Stop: 06/15/25 18:17 Last Admin: 06/15/25 18:28 Dose: 4 mg Documented By: Ondansetron HCl (Ondansetron 4 Mg/2 Ml Inj) 4 mg IV NOW ONE Stop: 06/15/25 18:17 Last Admin: 06/15/25 18:25 Dose: 4 mg Documented By: Ondansetron HCl (Ondansetron 4 Mg/2 Ml Inj) 4 mg IV NOW ONE Stop: 06/15/25 18:18 Pantoprazole Sodium (Pantoprazole 40 Mg Vial) 40 mg IV NOW ONE Stop: 06/15/25 20:50 Last Admin: 06/15/25 21:03 Dose: 40 mg Documented By: LIZZY Vital Signs Vital signs: Vital Signs - 8 hr 06/15/25 17:16 06/15/25 17:17 06/15/25 17:17 Temperature 98.6 F Pulse Rate 104 H 111 H Respiratory Rate 14 Blood Pressure 127/88 127/88 Pulse Oximetry 96 96 Oxygen Delivery Method Room Air 06/15/25 17:30 06/15/25 17:30 06/15/25 18:00 Temperature Pulse Rate 108 H 94 H Respiratory Rate 14 19 Blood Pressure 156/85 H Pulse Oximetry 95 95 Oxygen Delivery Method Room Air 06/15/25 18:01 06/15/25 18:01 Temperature Pulse Rate 94 H Respiratory Rate 19 Blood Pressure 149/77 H Pulse Oximetry 96 Oxygen Delivery Method Room Air MDM - Chest Pain Lab Data Attestation: I reviewed the patient's lab results. Lab results narrative: White blood cell count 19449, hemoglobin 17.9, platelets adequate. Glucose 122. Normal renal function, serum CO2, electrolytes. Alkaline phosphatase 143 slight elevation, other liver functions normal. Lipase normal. Initial troponin negative/unmeasurable. 06/15/25 17:20 06/15/25 17:20 Labs: Lab Results 06/15/25 06/15/25 Range/Units 17:20 19:10 WBC 15.8 H (4.5-11.0) X10^3/uL RBC 5.36 (4.5-5.9) X10^6/uL Hgb 17.9 H (13.5-17.5) g/dL Hct 51.8 (41-53) % MCV 96.7 (80-100) fL MCH 33.4 (26-34) PG MCHC 34.6 (30-36) % RDW 13.7 (11.6-14.8) % Plt Count 248 (150-400) X10^3/uL Neut % (Auto) 79.1 H (50-75) % Lymph % (Auto) 11.4 L (25-40) % [place] % (Auto) 7.9 (3-14) % Eos % (Auto) 0.9 L (2-4) % Baso % (Auto) 0.7 (0-2) % Neut # (Auto) 69102 H (4630-6041) /uL Lymph # (Auto) 1800 (9324-3530) /uL [place] # (Auto) 1300 H (0-900) /uL Eos # (Auto) 100 (0-450) /uL Baso # (Auto) 100 (0-100) /uL PT 11.1 (9.4-12.5) SECONDS INR 1.0 (0.9-1.3) APTT 32 (25.1-36.5) SECONDS D-Dimer 623 H (<500) ng/ml Sodium 139 (137-145) mmol/L Potassium 3.7 (3.4-5.1) mmol/L Chloride 107 (98-107) mmol/L Carbon Dioxide 24 (22-32) mmol/L BUN 12 (9-20) mg/dL Creatinine 0.90 (0.66-1.25) mg/dL Estimated GFR > 60 (>60) mL/min BUN/Creatinine Ratio 13.3 (6-22) Glucose 122 H (70-99) mg/dL Calcium 9.9 (8.4-10.2) mg/dL Magnesium 1.6 (1.6-2.3) mg/dL Total Bilirubin 0.8 (0.2-1.3) mg/dL AST 22 (17-59) IU/L ALT 14 (<50) IU/L Alkaline Phosphatase 143 H (38-126) U/L Total Creatine Kinase 70 (55-170) U/L Troponin I < 0.012 < 0.012 (0.01-0.034) ng/mL NT-Pro-B Natriuret Pep 114 (<125) pg/mL Total Protein 8.4 H (6.3-8.2) g/dL Albumin 4.2 (3.5-5.0) g/dL Globulin 4.2 H (1.7-4.1) g/dL Albumin/Globulin Ratio 1.0 (1.0-2.8) Lipase 69 (23-300) U/L Ethyl Alcohol < 10 (<10) mg/dL Imaging Data Chest x-ray: Radiologist's Impression: [address] [address] XRay Report Signed Patient: Igor Ernst MR#: [id number] : 1965 Acct:[id number] Age/Sex: 60 / M Date of Service: 06/15/25 Loc: ED Accession Number: [id number] Procedure: XR chest 1V Ordering Provider: Alonso Peacock D.O. PROCEDURE: XR CHEST 1V INDICATIONS: Chest Pain TECHNIQUE: One view of the chest was acquired. COMPARISON: [facility], CR, XR CHEST 1V, 04/04/2023, 19:50. [facility], CR, XR CHEST 1V, 04/04/2023, 9:03. FINDINGS: Surgical changes and devices: None. Lungs and pleura: Lungs are clear. No pleural effusions or pneumothorax. Mediastinum: Mediastinal contours appear normal. Heart size is normal. Bones and chest wall: No suspicious bony lesions. Overlying soft tissues appear unremarkable. IMPRESSION: No acute cardiopulmonary abnormality is seen. Dictated by: Heather Mena M.D. on 06/15/2025 at 17:08 Approved by: Heather Mena M.D. on 06/15/2025 at 17:10 CTA chest: Radiologist's Impression: [place] [address] CT Scan Report Signed Patient: Igor Ernst MR#: [id number] : 1965 Acct:[id number] Age/Sex: 60 / M Date of Service: 06/15/25 Loc: ED Accession Number: [id number] Procedure: CT angio chest PE protocol Ordering Provider: Martin Hough MD PROCEDURE: CT ANGIO CHEST PE PROTOCOL INDICATIONS: chest pain, Dd elevated TECHNIQUE: After the administration of intravenous contrast, 2 mm thick sections acquired from the pulmonary apices to the posterior costophrenic angles. 3-dimensional maximum intensity projection (MIP) coronal and sagittal reformats were then acquired through the thorax. For radiation dose reduction, the following was used: automated exposure control, adjustment of mA and/or kV according to patient size. COMPARISON: [facility], CT, CT CERVICAL SPINE WITHOUT CONTRAST, 09/15/2021, 10:16. FINDINGS: Image quality: Diagnostic. Pulmonary arteries: Pulmonary arteries are normal in size, and demonstrate no intraluminal filling defects to suggest central pulmonary embolism. Lower Neck: No enlarged lymph nodes. Thyroid: No thyroid nodules which require sonographic follow up, per consensus guidelines. Axillae: No enlarged lymph nodes. Chest Wall: Right upper back subcutaneous nodule measuring 1.4 cm, (2/3), similar to 202. Right upper back subcutaneous nodule measuring 0.7 cm, (2/8), similar. Left posterior shoulder subcutaneous nodule measuring 1 cm, (2/36). These could represent sebaceous cysts. Bones: No suspicious osseous lesion. Lungs and Pleura: No pneumothorax or pleural effusions. Right apex pulmonary nodule measuring 0.5 cm, (3/38). Dependent atelectasis. Central airways are clear. Heart: Heart size is normal. LAD stent No pericardial effusion. Thoracic Vessels: No aortic aneurysm. Mediastinum and Umu: No enlarged lymph nodes. Esophagus: Question esophageal wall thickening, (2/41). No hiatal hernia. Upper Abdomen: Visualized upper abdomen solid organs and bowel loops appear normal. IMPRESSION: 1. No pulmonary embolism. 2. No consolidation. No pleural effusion. 3. Question esophageal wall thickening. Dictated by: Rogelio Luevano M.D. on 06/15/2025 at 20:17 Approved by: Rogelio Luevano M.D. on 06/15/2025 at 20:27 CT scan - abdomen/pelvis: Radiologist's Impression: [place] [address] CT Scan Report Signed Patient: Igor Ernst MR#: [id number] : 1965 Acct:[id number] Age/Sex: 60 / M Date of Service: 06/15/25 Loc: ED Accession Number: [id number] Procedure: CT abdomen pelvis w con Ordering Provider: Martin Hough MD PROCEDURE: CT ABDOMEN PELVIS W CON INDICATIONS: Abdominal pain TECHNIQUE: After the administration of intravenous contrast, axial sections acquired from the lung bases to the pubic symphysis. Coronal and sagittal reformats were performed. For radiation dose reduction, the following was used: automated exposure control, adjustment of mA and/or kV according to patient size. COMPARISON: [facility], CT, CT ANGIO CHEST PE PROTOCOL, 06/15/2025, 19:32. FINDINGS: Image quality: Diagnostic. Lower Chest: Dictated separately. Question esophageal wall thickening. ABDOMEN: Liver: No solid mass. Gallbladder: No radiopaque gallstones or wall thickening. Biliary ducts: No biliary dilation. Pancreas: No ductal dilation. Spleen: Size is within normal limits. Adrenal Glands: No adrenal nodules. Kidneys and Ureters: No hydronephrosis. Small nonobstructing left kidney stones x3. No solid mass. No complex renal cystic lesion which requires follow up. Stomach and Bowel: Normal colonic caliber, without significant wall thickening. Normal appendix. Peritoneum: No abnormal intraperitoneal fluid. No free air. Ventral Wall: No significant ventral hernia. Abdominal Nodes: No retroperitoneal or mesenteric adenopathy by size criteria. Vessels: Aorta and inferior vena cava are normal in size. PELVIS: Pelvic Organs: Prostate calcification. Bladder: No bladder wall thickening, accounting for underdistention. Pelvic Nodes: No enlarged lymph nodes. Miscellaneous: No inguinal hernias are seen. Bones: No aggressive osseous abnormality. L5-S1 DDD. IMPRESSION: 1. No acute inflammatory process is identified. Normal appendix. No free fluid. 2. Small nonobstructing left kidney stones. 3. Question esophageal wall thickening. Consider further evaluation with esophagram or endoscopy. Dictated by: Rogelio Luevano M.D. on 06/15/2025 at 20:27 Approved by: Rogelio Luevano M.D. on 06/15/2025 at 20:33 ECG Data Attestation: I personally reviewed and interpreted this ECG as follows: Interpretation: 1725, sinus tachycardia with a rate of 105, no obvious ST segment elevation or depression changes. GA 128, QRS 90, QTC 449. [facility] Narrative Medical decision making narrative: 60-year-old male with history of CAD status post ME and single coronary artery stent placed April 2023, ongoing smoking, brought in by police after trespassing, had outstanding DUI warrant, admitted to intermittent chest pain throughout the day today. Given aspirin. Initial EKG without obvious ischemic changes. Chest x-ray and labs pending. Still having intermittent chest discomfort. IV morphine/Dilaudid, IV Pepcid. EKG without obvious ischemic changes, mild sinus tachycardia with rate 105 noted. No history of known blood clots to legs or lungs, no leg pain or swelling symptoms. D-dimer added. Chest x-ray no acute changes. See radiology report. Initial lab data: White blood cell count 41990, hemoglobin 17.9, platelets adequate. Glucose 122. Normal renal function, serum CO2, electrolytes. Alkaline phosphatase 143 slight elevation, other liver functions normal. Lipase normal. Initial troponin negative/unmeasurable. D-dimer 600s elevated. CTA chest PE protocol, with IV only CT abdomen and pelvis imaging ordered. IV fluid bolus. Keep NPO. CTA chest shows no PE, no mentioned of any pulmonary infiltrates. Possible esophageal thickening noted. See radiology report. CT abdomen and pelvis shows nonobstructing kidney stones, possible esophageal thickening again noted. See radiology report. Interval repeat troponin pending. We will add IV Protonix. Repeat troponin also negative/unmeasurable. We will send prescription for omeprazole to his pharmacy. Discharged home, medically cleared for discharge disposition to law enforcement. Discharge Plan Departure Patient Disposition: Home Clinical Impression: Chest pain, Kidney stones, Esophageal thickening Instructions: DI for Kidney Stones, DI for Chest Pain Activity Restrictions/Additional Instructions: Chest pain, and evaluation for disposition to law enforcement custody. EKG and serial blood tests not suggestive of heart attack at this time. CT angiogram of the chest showed no acute changes in the chest, no blood clots to the lungs, no pneumonia changes, some thickening of the esophagus suspected, antacid suggested for now, but you might need to get upper endoscopy in follow up to have possible biopsy to make sure there is no cancerous change in your esophagus. CT abdomen and pelvis showed the same esophageal thickening, also nonobstructing kidney stones incidentally noted. Trial of antacid for now, prescription sent to your pharmacy. Follow up with your regular doctor to consider upper endoscopy to further evaluate the suspected esophageal thickening changes on imaging studies. Fit for residential, medically cleared for disposition to law enforcement custody. Prescriptions: New omeprazole 20 mg capsule,delayed release(DR/EC) 20 mg PO DAILY 30 Days Qty: 30 0RF No Action amlodipine 5 mg tablet 5 mg PO DAILY Patient Comments: take 1 tablet by mouth once daily ropinirole 0.5 mg tablet 0.5 mg PO TID Patient Comments: take 1 tablet by mouth three times a day gabapentin 300 mg capsule 600 mg PO TID Patient Comments: take 2 capsules by mouth three times a day hydrochlorothiazide 25 mg tablet 25 mg PO DAILY Patient Comments: take 1 tablet by mouth once daily albuterol sulfate 90 mcg/actuation HFA aerosol inhaler 2 inh INHALATION Q4HR PRN (Reason: Wheezing) Patient Comments: inhale 2 puffs by mouth and INTO THE LUNGS every 4 hours if neede... (REFER TO PRESCRIPTION NOTES). Referrals: Miscellaneous,Doctor, MD [Primary Care Provider, Medical] Stand Alone Forms: Patient Portal/API
[2025-06-15] MEDS: ONDANSETRON 4 MG/2 ML INJ IV (18:25)
[2025-06-15] MEDS: FAMOTIDINE 20 MG/2 ML VIAL IV (18:26)
[2025-06-15] MEDS: MORPHINE 4 MG/ML INJ IV (18:28)
[2025-06-15 18:30] LABS: Ethanol (ETOH) < 10 mg/dL (<10)
--- NOTE | 2025-06-15 19:24 | DI.CT.S_ITS ---
PROCEDURE: CT ANGIO CHEST PE PROTOCOL INDICATIONS: chest pain, Dd elevated TECHNIQUE: After the administration of intravenous contrast, 2 mm thick sections acquired from the pulmonary apices to the posterior costophrenic angles. 3-dimensional maximum intensity projection (MIP) coronal and sagittal reformats were then acquired through the thorax. For radiation dose reduction, the following was used: automated exposure control, adjustment of mA and/or kV according to patient size. COMPARISON: [facility], CT, CT CERVICAL SPINE WITHOUT CONTRAST, 09/15/2021, 10:16. FINDINGS: Image quality: Diagnostic. Pulmonary arteries: Pulmonary arteries are normal in size, and demonstrate no intraluminal filling defects to suggest central pulmonary embolism. Lower Neck: No enlarged lymph nodes. Thyroid: No thyroid nodules which require sonographic follow up, per consensus guidelines. Axillae: No enlarged lymph nodes. Chest Wall: Right upper back subcutaneous nodule measuring 1.4 cm, (2/3), similar to 2020. Right upper back subcutaneous nodule measuring 0.7 cm, (2/8), similar. Left posterior shoulder subcutaneous nodule measuring 1 cm, (2/36). These could represent sebaceous cysts. Bones: No suspicious osseous lesion. Lungs and Pleura: No pneumothorax or pleural effusions. Right apex pulmonary nodule measuring 0.5 cm, (3/38). Dependent atelectasis. Central airways are clear. Heart: Heart size is normal. LAD stent No pericardial effusion. Thoracic Vessels: No aortic aneurysm. Mediastinum and Umu: No enlarged lymph nodes. Esophagus: Question esophageal wall thickening, (2/41). No hiatal hernia. Upper Abdomen: Visualized upper abdomen solid organs and bowel loops appear normal. IMPRESSION: 1. No pulmonary embolism. 2. No consolidation. No pleural effusion. 3. Question esophageal wall thickening. Dictated by: Rogelio Luevano M.D. on 06/15/2025 at 20:17 Approved by: Rogelio Luevano M.D. on 06/15/2025 at 20:27
--- NOTE | 2025-06-15 19:25 | DI.CT.S_ITS ---
PROCEDURE: CT ABDOMEN PELVIS W CON INDICATIONS: Abdominal pain TECHNIQUE: After the administration of intravenous contrast, axial sections acquired from the lung bases to the pubic symphysis. Coronal and sagittal reformats were performed. For radiation dose reduction, the following was used: automated exposure control, adjustment of mA and/or kV according to patient size. COMPARISON: [facility], CT, CT ANGIO CHEST PE PROTOCOL, 06/15/2025, 19:32. FINDINGS: Image quality: Diagnostic. Lower Chest: Dictated separately. Question esophageal wall thickening. ABDOMEN: Liver: No solid mass. Gallbladder: No radiopaque gallstones or wall thickening. Biliary ducts: No biliary dilation. Pancreas: No ductal dilation. Spleen: Size is within normal limits. Adrenal Glands: No adrenal nodules. Kidneys and Ureters: No hydronephrosis. Small nonobstructing left kidney stones x3. No solid mass. No complex renal cystic lesion which requires follow up. Stomach and Bowel: Normal colonic caliber, without significant wall thickening. Normal appendix. Peritoneum: No abnormal intraperitoneal fluid. No free air. Ventral Wall: No significant ventral hernia. Abdominal Nodes: No retroperitoneal or mesenteric adenopathy by size criteria. Vessels: Aorta and inferior vena cava are normal in size. PELVIS: Pelvic Organs: Prostate calcification. Bladder: No bladder wall thickening, accounting for underdistention. Pelvic Nodes: No enlarged lymph nodes. Miscellaneous: No inguinal hernias are seen. Bones: No aggressive osseous abnormality. L5-S1 DDD. IMPRESSION: 1. No acute inflammatory process is identified. Normal appendix. No free fluid. 2. Small nonobstructing left kidney stones. 3. Question esophageal wall thickening. Consider further evaluation with esophagram or endoscopy. Dictated by: Rogelio Luevano M.D. on 06/15/2025 at 20:27 Approved by: Rogelio Luevano M.D. on 06/15/2025 at 20:33
[2025-06-15 19:43] LABS: Troponin I < 0.012 ng/mL (0.01-0.034)
[2025-06-15] MEDS: SODIUM CHLORIDE 0.9% 1,000 ML 1000 ML IV (19:47)
[2025-06-15] MEDS: PANTOPRAZOLE 40 MG VIAL IV (21:03)
== END 2025-06-15 21:12 | disposition home or self-care (01) ==
PROVIDERS: Family Medicine; Emergency Provider Emergency Medicine
DX: R07.9 Chest pain, unspecified (principal); N20.0 Calculus of kidney; K22.89 Other specified disease of esophagus; Z86.79 Personal history of other diseases of the circulatory system; Z95.5 Presence of coronary angioplasty implant and graft; I25.2 Old myocardial infarction
CPT/HCPCS: 36415; 71045; 71275; 74177; 80053; 80320; 82550; 83690; 83735; 83880; 84484; 85025; 85379; 85610; 85730; 93005; 93010; 96361; 96374; 96375; 99284; J2270; J2405; J2470; Q9967